=== PATIENT | female | born 1985 | race Two or more races ===

== ENCOUNTER 2016-10-11 08:06 | Emergency (ER) | payer OTHER ==
[2016-10-11 08:12] VITALS: TEMP 97.6; BMI 25.1
--- NOTE | 2016-10-11 08:20 | PDOC ---
History of Present Illness - General Chief Complaint: Vaginal Bleeding Stated Complaint: 10 WKS/BLEEDING Time Seen by Provider: 10/11/16 08:19 History Source: Patient Exam Limitations: No Limitations - History of Present Illness Initial Comments: CHIEF COMPLAINT: 31 y/o afebrile female, , approximately 10 week female with LMP "early July" c/o vaginal bleeding this morning. HISTORY OF PRESENT ILLNESS: The patient had a small amount of red blood when she wiped this morning. she states last night she had back cramping but that has resolved. She is not currently having vaginal bleeding. She denies f/c, n/ v/d, CP, SOB, abd pain, back pain, hematuria, dysuria, passage of clots. Vital signs on arrival are within normal limits. REVIEW OF SYSTEMS: GENERAL/CONSTITUTIONAL: No fever/chills. No weakness. No weight change. HEAD, EYES, EARS, NOSE AND THROAT: No change in vision. No ear pain or discharge. No sore throat. CARDIOVASCULAR: No chest pain or shortness of breath. RESPIRATORY: No cough, wheezing, or hemoptysis. GASTROINTESTINAL: No abd pain, nausea, vomiting, diarrhea. GENITOURINARY: No dysuria, frequency, or change in urination. +vaginal bleeding (resolved) MUSCULOSKELETAL: No joint or muscle swelling or pain. No neck or back pain. SKIN: No rash or easy bruising. NEUROLOGIC: No headache, vertigo, loss of consciousness, or loss of sensation. PHYSICAL EXAM: GENERAL: The patient is awake, alert, and fully oriented, in no acute distress. She is well appearing and ambulatory. HEAD: Normal with no signs of trauma. ENT: Pupils equal, round and reactive to light, extraocular movements intact, sclera anicteric, conjunctiva clear. Neck supple. LUNGS: Clear to auscultation bilaterally. Normal excursion. No respiratory distress or use of accessory muscles. CV: RRR, S1/S2, no MRG. Cap refill < 2 sec. ABDOMEN: Soft, non-distended, no hepatomegaly or splenomegaly, no masses. + left pelvic pain with palpation. VAGINAL: DEFERRED EXTREMITIES: Normal range of motion, no edema. NEUROLOGICAL: Normal speech, normal gait. CN II-XII grossly intact. PSYCH: Normal mood, normal affect. SKIN: Warm, dry, normal turgor, no rashes or lesions noted. Past History - Past Medical History Allergies/Adverse Reactions: Allergies Allergy/AdvReac Type Severity Reaction Status Date / Time No Known Allergies Allergy Verified 10/11/16 08:12 Home Medications: Ambulatory Orders NK [No Known Home Medication] 10/11/16 Thyroid Disease: Yes Other medical history: TOXIPLASMOSIS - Psycho/Social/Smoking Cessation Hx Suicidal Ideation: No Smoking History: Never smoked Hx Alcohol Use: No Drug/Substance Use Hx: No *Physical Exam - Vital Signs Last Vital Signs Temp Pulse Resp BP Pulse Ox 97.6 F 59 L 18 112/74 99 10/11/16 08:07 10/11/16 08:07 10/11/16 08:07 10/11/16 08:07 10/11/16 08:07 ED Treatment Course - LABORATORY CBC & Chemistry Diagram: 10/11/16 08:25 10/11/16 08:25 Medical Decision Making - Medical Decision Making A/P: 31 y/o , approximately 10 week female with vaginal bleeding this morning that has resolved. Plan is as follows: 1. Labs 2. UA/culture 3. Transvaginal ultrasound Labs unremarkable UA normal Ultrasound IMPRESSION: Single live intrauterine with estimated gestational age of 9 weeks 1 day. Nonvisualization of the right ovary. Hypoechoic density in the left ovary measuring 1.8cm suggestive of a hemorrhagic corpus luteum cyst. Follow up recommended. Explained all the results to the patient. She was instructed to f/u with Dr. Coon as soon as possible to f/u with ovarian cyst and return to the ER immediately with any worsening or concerning symptoms. The patient verbalizes understanding of all instructions, has no further questions and is awaiting discharge. *DC/Admit/Observation/Transfer Diagnosis at time of Disposition: Vaginal bleeding in Qualifiers: Trimester: first trimester Qualified Code(s): O46.91 - Antepartum hemorrhage, unspecified, first trimester Ovarian cyst Qualifiers: Laterality: left Qualified Code(s): N83.202 - Unspecified ovarian cyst, left side - Discharge Dispostion Disposition: HOME Condition at time of disposition: Good - Referrals Referrals: Jeison Coon MD [Staff Physician] - Call tomorrow - Patient Instructions Printed Discharge Instructions: DI for Vaginal Bleeding During , DI for Ovarian Cyst Additional Instructions: Discharge Instructions: -You have a left ovarian cyst -You can take ONLY Tylenol for pain if needed -Your ultrasound showed a fetus of 9 weeks 1 day with a heart rate of 168bpm. -Please call Dr. Coon today to schedule a follow up appointment JAIME -Return to the ER immediately with any worsening or concerning symptoms. Print Language: LITHUANIAN
[2016-10-11 08:36] LABS: BASOPHIL 1.2 % (0-2.0); EOSINOPHIL 0.8 % (0-4.5); MCH 32.2 pg (25.7-33.7); MCHC 34.3 g/dl (32.0-36.0); MEAN PLT VOLUME 8.4 fl (7.5-11.1); NEUTROPHILS 54.4 % (42.8-82.8); PLATELET COUNT 190 K/MM3 (134-434); RDW 13.2 % (11.6-15.6); WHITE BLOOD COUNT 7.8 K/mm3 (4.0-10.0)
[2016-10-11 09:01] LABS: URINE APPEARANCE CLEAR; URINE BILIRUBIN NEGATIVE (NEGATIVE); URINE BLOOD NEGATIVE (NEGATIVE); URINE COLOR LTYELLOW; URINE GLUCOSE (UA) NEGATIVE (NEGATIVE); URINE KETONE NEGATIVE (NEGATIVE); URINE LEUK ESTERASE NEGATIVE (NEGATIVE); URINE NITRITE NEGATIVE (NEGATIVE); URINE PROTEIN NEGATIVE (NEGATIVE); URINE UROBILINOGEN NEGATIVE E.U./dl (0.2-1.0)
[2016-10-11 09:06] LABS: ALBUMIN 4.2 g/dl (3.4-5.0); ANION GAP 11 (8-16); BILIRUBIN,TOTAL 0.3 mg/dL (0.2-1.0); CALCIUM 8.7 mg/dL (8.5-10.1); CO2 25 mmol/L (21-32); CREATININE 0.7 mg/dL (0.55-1.02); GLUCOSE,RANDOM 88 mg/dL (74-106); SGOT/AST 17 U/L (15-37); SGPT/ALT 21 U/L (12-78)
[2016-10-11 09:21] LABS: ALK PHOS 52 U/L (45-117); TOT PROT 7.4 g/dl (6.4-8.2)
--- NOTE | 2016-10-11 11:08 | PDOC ---
*Physical Exam - Vital Signs Last Vital Signs Temp Pulse Resp BP Pulse Ox 97.6 F 59 L 18 112/74 99 10/11/16 08:07 10/11/16 08:07 10/11/16 08:07 10/11/16 08:07 10/11/16 08:07 ED Treatment Course - LABORATORY CBC & Chemistry Diagram: 10/11/16 08:25 10/11/16 08:25 - ADDITIONAL ORDERS Additional order review: Laboratory Results 10/11/16 10/11/16 10/11/16 08:25 08:25 08:25 Sodium 137 Potassium 3.9 Chloride 101 Carbon Dioxide 25 Anion Gap 11 BUN 8 Creatinine 0.7 Creat Clearance w eGFR > 60 Random Glucose 88 Calcium 8.7 Total Bilirubin 0.3 AST 17 ALT 21 Alkaline Phosphatase 52 Total Protein 7.4 Albumin 4.2 Beta HCG, Quant 375174.4 Urine Color Ltyellow Urine Appearance Clear Urine pH 6.0 Ur Specific [place] 1.019 Urine Protein Negative Urine Glucose (UA) Negative Urine Ketones Negative Urine Blood Negative Urine Nitrite Negative Urine Bilirubin Negative Urine Urobilinogen Negative Ur Leukocyte Esterase Negative Blood Type O POSITIVE Antibody Screen Negative 10/11/16 08:25 RBC 3.99 MCV 94.0 MCHC 34.3 RDW 13.2 MPV 8.4 Neutrophils % 54.4 Lymphocytes % 37.4 Monocytes % 6.2 Eosinophils % 0.8 Basophils % 1.2 Medical Decision Making - Medical Decision Making 10/11/16 11:07 Patient seen and evaluated with the nurse practitioner. I agree with the overall evaluation, assessment, and management with the following summary of visit: 31-year-old female presents with first trimester vaginal bleeding. HCG as noted, Rh+, ultrasound shows single live intrauterine gestation with positive heart. Agree with management as outlined. *DC/Admit/Observation/Transfer Diagnosis at time of Disposition: Vaginal bleeding in Qualifiers: Trimester: first trimester Qualified Code(s): O46.91 - Antepartum hemorrhage, unspecified, first trimester Ovarian cyst Qualifiers: Laterality: left Qualified Code(s): N83.202 - Unspecified ovarian cyst, left side - Discharge Dispostion Disposition: HOME Condition at time of disposition: Good - Referrals Referrals: Jeison Coon MD [Staff Physician] - Call tomorrow - Patient Instructions Printed Discharge Instructions: DI for Ovarian Cyst, DI for Vaginal Bleeding During Additional Instructions: Discharge Instructions: -You have a left ovarian cyst -You can take ONLY Tylenol for pain if needed -Your ultrasound showed a fetus of 9 weeks 1 day with a heart rate of 168bpm. -Please call Dr. Coon today to schedule a follow up appointment JAIME -Return to the ER immediately with any worsening or concerning symptoms. Print Language: EGYPTIAN - Post Discharge Activity
[2016-10-11 11:15] VITALS: BP 100/68; PULSE 52
== END 2016-10-11 11:18 | disposition home or self-care (01) ==
LOC: JER 08:06
DX: O26.891 Other specified pregnancy related conditions, first trimester (principal); O46.91 Antepartum hemorrhage, unspecified, first trimester; N83.202 Unspecified ovarian cyst, left side; Z3A.10 10 weeks gestation of pregnancy
CPT/HCPCS: 36415; 76801-TC; 80053; 81003; 84702; 85025; 86850; 86900; 86901; 87086; 99283-25

== ENCOUNTER 2017-05-03 14:25 | Inpatient (IN) | payer OTHER ==
[2017-05-03 15:07] VITALS: BMI 30.7
[2017-05-03] MEDS ORDERED: ELECTROLYTE-148 SOLN 500 ML IV ONE ×2 (15:30)
[2017-05-03] MEDS ORDERED: CITRIC ACID/SODIUM CITRATE 30 ML UNIT-DOSE CUP PO ONE (15:30)
[2017-05-03] MEDS ORDERED: ONDANSETRON 4 MG/2 ML VIAL IVPB PRN (16:19)
[2017-05-03] MEDS ORDERED: morphine SULFATE/Preservative Free 0.5 MG/ML (1cc Syringe) EP ONE (16:19)
[2017-05-03] MEDS ORDERED: IBUPROFEN 800 MG/8 ML IJ IVPB PRN ×2 (16:20→17:57)
[2017-05-03] MEDS ORDERED: ELECTROLYTE-148 SOLN 1,000 ML IV SCH (16:45)
--- NOTE | 2017-05-03 16:46 | HP ---
Past Medical History - Primary Care Physician PCP:: Jeison Coon - Admission Chief Complaint: 39 weeks, previous c/s request of repeat c/s History of Present Illness: 32 yo f edc by sono 05/10/17 with one previous c/s request of repeat c/ s and tubal ligation risks discussed , ulternatives explained , encourged History Source: Patient Limitations to Obtaining History: Language Barrier - Past Medical History ...: 4 ...Para: 1 ...Term: 1 ...: 1 ...Spon : 1 ...Induced : 0 ...Multiple Gestation: 0 ...LMP: 08/06/16 ... Weeks Gestation by Dates: 38.4 ...EDC by Dates: 05/13/17 ...EDC by Sono: 05/10/17 Endocrine: Yes: Hypothyroidism - Past Surgical History Past Surgical History: Yes: Hx Myomectomy: No Hx Transabdominal Cerclage: No Additional Surgical History: abdominoplasty - Smoking History Smoking history: Never smoked Have you smoked in the past 12 months: No - Alcohol/Substance Use Hx Alcohol Use: No - Social History Usual Living Arrangement: Yes: With Spouse History of Recent Travel: No Home Medications - Allergies Allergies/Adverse Reactions: Allergies Allergy/AdvReac Type Severity Reaction Status Date / Time No Known Allergies Allergy Verified 05/03/17 14:43 - Home Medications Home Medications: Ambulatory Orders Ferrous Sulfate [Feosol] 325 mg PO DAILY 05/03/17 Folic Acid - 1 tab PO DAILY 05/03/17 Levothyroxine [Synthroid -] 200 mg PO DAILY 05/03/17 Vit #108/Iron/FA [ One Tablet] 1 tab PO DAILY 05/03/17 Review of Systems - Review of Systems Constitutional: reports: No Symptoms Eyes: reports: No Symptoms HENT: reports: No Symptoms Neck: reports: No Symptoms Cardiovascular: reports: No Symptoms Respiratory: reports: No Symptoms Gastrointestinal: reports: No Symptoms Genitourinary: reports: No Symptoms Breasts: reports: No Symptoms Reported Musculoskeletal: reports: No Symptoms Integumentary: reports: No Symptoms Neurological: reports: No Symptoms Endocrine: reports: No Symptoms Physical Exam - Maternity Vital Signs: Vital Signs Temperature 98.5 F 05/03/17 14:54 Pulse Rate 72 05/03/17 14:54 Respiratory Rate 20 05/03/17 14:54 Blood Pressure 115/69 05/03/17 14:54 O2 Sat by Pulse Oximetry (%) Constitutional: Yes: Well Nourished, No Distress, Calm Eyes: Yes: WNL, Conjunctiva Clear, EOM Intact HENT: Yes: WNL, Atraumatic, Normocephalic Neck: Yes: WNL, Supple, Trachea Midline Cardiovascular: Yes: WNL, Regular Rate and Rhythm Breast(s): Yes: WNL - Abdominal Exam/OB Fundal Height: 40 Number of Fetuses: Single Presentation: Vertex Contractions: No Intensity: Unaware Monitor Mode: External Heart Rate Location: [facility] Category: I Accelerations: Uniform Decelerations: None - Vaginal Exam/OB Amniotic Membrane Status: Intact Presentation: Vertex/Position Station: -3 - Physical Exam Edema: Yes Edema: LLE: Trace, RLE: Trace Deep Tendon Reflex Grade: Normal +2 ...Motor Strength: WNL Psychiatric: Yes: WNL Hemorrhage Risk Assessment - Risk Factors Medium Risk Factors: Yes: Prior , uterine surgery,or multiple laparotomies Risk Score: 1 Risk Level: Medium Risk Problem List - Problems (1) with 39 completed weeks gestation Code(s): Z3A.39 - 39 WEEKS GESTATION OF (2) Previous delivery affecting Code(s): O34.219 - MATERNAL CARE FOR UNSP TYPE SCAR FROM PREVIOUS DEL (3) Sterilization Code(s): Z30.2 - ENCOUNTER FOR STERILIZATION Assessment/Plan admit for repeat c/s and BTL. rba discussed
[2017-05-03] MEDS ORDERED: WITCH HAZEL 50% (TUCKS) 40 PAD/JAR PAD TP PRN (17:57)
[2017-05-03] MEDS ORDERED: BENZOCAINE 20% 57 GM BOTTLE TP PRN (17:57)
[2017-05-03] MEDS ORDERED: diphenhydrAMINE HCL 25 MG CAPSULE (FP) PO PRN (17:57)
[2017-05-03] MEDS ORDERED: METHYLERGONOVINE MALEATE 0.2 MG/1 ML AMP IM PRN (17:57)
[2017-05-03] MEDS ORDERED: BENZOCAINE 28 GM HEMORRHOIDAL OINTMENT PR PRN (17:57)
[2017-05-03] MEDS ORDERED: DEXTROSE 5%-LACTATED RINGERS 1,000 ML IV SCH (18:00)
[2017-05-03] MEDS ORDERED: OXYTOCIN 20 UNITS in 0.9% NS 1,000 ML IV SCH (18:00)
[2017-05-03] MEDS ORDERED: CEFAZOLIN 1 GM/D5W 50 ML IVPB SCH (18:00)
--- NOTE | 2017-05-03 19:38 | OP ---
DATE OF OPERATION: 05/03/2017 PREOPERATIVE DIAGNOSIS: , 39 weeks. Previous section. Request of repeat section and tubal ligation. POSTOPERATIVE DIAGNOSIS: , 39 weeks. Previous section. Request of repeat section and tubal ligation. PROCEDURE: Repeat low segment transverse section and bilateral tubal ligation. SURGEON: Carlos Manuel Coon M.D. SERVICE OR WORK DISPATCHER CHIEF: Marcial Turner ANESTHESIA: Spinal. ANESTHESIOLOGIST: Caleb Delvalle M.D. ESTIMATED BLOOD LOSS: 500 mL. OPERATION: Patient was taken to operating room with adequate spinal anesthesia. Abdomen and perineum were prepped and draped. Pfannenstiel abdominal skin incision was made. Abdominal wall was cut layer by layer until the peritoneum was exposed and incised. Upon entering the abdominal cavity, the lower uterine segment was identified, and uterovesical fold of the peritoneum was established. The bladder was pushed down. A low transverse incision was made. The incision extended laterally. Amniotic sac was entered. Clear fluid. Head delivered from right occipital transverse position. Cord around the foot x1. Nasopharynx was suctioned. A live baby was delivered. Placenta was delivered manually. Uterine cavity was cleared of all remaining tissue. Uterine incision was closed in 2 layers, the 1st layer with 0 Biosyn continuous suture, the 2nd layer with 0 Biosyn imbricating the 1st layer. Bladder flap was closed with 0 Biosyn continuous suture. Both tubes and ovaries were checked and were normal. No active bleeding was seen. The right tube was grasped with [place] clamp, right tube was doubly tied with 2-0 plain. Portion of tube was removed, and endosalpinx was cauterized. The same procedure repeated for opposite tube. Then peritoneum was closed with 0 Biosyn continuous suture. Muscles were brought together interrupted suture with 0 Biosyn. Fascia was closed with 0 Biosyn continuous sutures. Subcutaneous fat interrupted suture of 0 Biosyn, and the skin was closed with rios. The patient tolerated the procedure well and left the OR in good condition. CARLOS MANUEL COON M.D. [id number]
[2017-05-03] MEDS ORDERED: CEFAZOLIN 1 GM in DEXTROSE 5%-WATER - 50 ML IVPB SCH (20:45)
[2017-05-04] MEDS ORDERED: DEXTROSE 5%-WATER - 50 ML IVPB ONE (01:29)
[2017-05-04] MEDS ORDERED: ceFAZolin SODIUM 1 GM VIAL ONE (01:29)
[2017-05-04] MEDS: LEVOTHYROXINE NA 200 MCG TABLET PO SCH (06:40)
--- NOTE | 2017-05-04 08:15 | PN ---
Progress Note (short form) - Note Progress Note: pod 1 doing well, no c/o Last Vital Signs Temp Pulse Resp BP Pulse Ox 98.7 F 64 20 107/67 100 05/04/17 06:01 05/04/17 06:01 05/04/17 05:00 05/04/17 06:01 05/03/17 19:00 abdomen soft, no distension, no cva incision dry, clean no calf tenderness no excess vaginal bleeding plan ambulate cbc , advance diet, pain management Problem List - Problems (1) with 39 completed weeks gestation Code(s): Z3A.39 - 39 WEEKS GESTATION OF (2) Previous delivery affecting Code(s): O34.219 - MATERNAL CARE FOR UNSP TYPE SCAR FROM PREVIOUS DEL (3) Sterilization Code(s): Z30.2 - ENCOUNTER FOR STERILIZATION
--- NOTE | 2017-05-04 08:25 | PN ---
Progress Note (short form) - Note Progress Note: Post op day#1.S/P C section with BTL under spinal anesthesia with duramorph uneventful.Patient stable and c/o little pain for which she is on medication.No any anesthesia related problem.Patient DC from the anesthesia care.
[2017-05-04 08:32] LABS: BASOPHIL 0.7 % (0-2.0); EOSINOPHIL 0.8 % (0-4.5); MCH 32.1 pg (25.7-33.7); MCHC 33.9 g/dl (32.0-36.0); MEAN CELL VOLUME 94.6 fl (80-96); MEAN PLT VOLUME 9.1 fl (7.5-11.1); NEUTROPHILS 69.9 % (42.8-82.8); PLATELET COUNT 138 K/MM3 (134-434); RDW 13.1 % (11.6-15.6); WHITE BLOOD COUNT 7.2 K/mm3 (4.0-10.0)
[2017-05-04] MEDS: SIMETHICONE 80 MG TAB.CHEW (FP) PO PRN ×3 (09:11→20:44)
[2017-05-04] MEDS: IBUPROFEN 600 MG TABLET (FP) PO PRN ×3 (09:11→20:44)
[2017-05-04] MEDS: ENOXAPARIN NA (PORCINE) 40 MG/0.4 ML DISP.SYRIN SQ SCH (09:13)
[2017-05-04] MEDS ORDERED: DIPHTH,PERTUSS(ACELL),TET 0.5 ML DISP.SYRIN IM ONE (10:00)
[2017-05-04] MEDS ORDERED: FLU VACC QS2017-18 36MOS UP/PF 60 MCG/0.5 ML SYRINGE IM ONE (10:00)
[2017-05-04] MEDS ORDERED: ACETAMINOPHEN 325 MG TABLET (FP) ONE (12:56)
[2017-05-04] MEDS: oxyCODONE HCL 5 MG TABLET PO PRN ×2 (14:38→20:45)
[2017-05-04] MEDS ORDERED: BISACODYL 10 MG SUPP.RECT RC PRN (17:57)
[2017-05-05] MEDS: IBUPROFEN 600 MG TABLET (FP) PO PRN ×5 (02:33→20:16)
[2017-05-05] MEDS: oxyCODONE HCL 5 MG TABLET PO PRN ×6 (02:33→22:17)
[2017-05-05] MEDS: SIMETHICONE 80 MG TAB.CHEW (FP) PO PRN ×5 (02:33→20:12)
[2017-05-05] MEDS: LEVOTHYROXINE NA 200 MCG TABLET PO SCH (06:19)
--- NOTE | 2017-05-05 07:57 | PN ---
Post Progress Note - Subjective Subjective: 32 yo Para 3 status post repeat , seen and evaluated. Doing well, no complaints. Post Day: 2 Type of Delivery: Repeat C/S Vital Signs: Vital Signs Temperature 98.2 F 05/05/17 06:07 Pulse Rate 60 05/05/17 06:07 Respiratory Rate 18 05/05/17 06:07 Blood Pressure 110/67 05/05/17 06:07 O2 Sat by Pulse Oximetry (%) 100 05/03/17 19:00 Breast Exam: Yes: Soft Uterus: Yes: Fundus Firm Incision: Yes: [place] intact Abdomen/GI: Yes: Abdomen soft, Tolerating PO Lochia: Yes: Rubra Lochia, amount: Small Extremities: Yes: Calves non-tender Perineum: Yes: Intact Activity: Ambulating - Labs Labs: CBC WBC 7.2 K/mm3 (4.0-10.0) 05/04/17 08:00 RBC 3.48 M/mm3 (3.60-5.2) L 05/04/17 08:00 Hgb 11.2 GM/dL (10.7-15.3) 05/04/17 08:00 Hct 32.9 % (32.4-45.2) 05/04/17 08:00 MCV 94.6 fl (80-96) 05/04/17 08:00 MCH 32.1 pg (25.7-33.7) 05/04/17 08:00 MCHC 33.9 g/dl (32.0-36.0) 05/04/17 08:00 RDW 13.1 % (11.6-15.6) 05/04/17 08:00 Plt Count 138 K/MM3 (134-434) 05/04/17 08:00 MPV 9.1 fl (7.5-11.1) 05/04/17 08:00 Neutrophils % 69.9 % (42.8-82.8) 05/04/17 08:00 Lymphocytes % 20.6 % (8-40) D 05/04/17 08:00 Monocytes % 8.0 % (3.8-10.2) 05/04/17 08:00 Eosinophils % 0.8 % (0-4.5) 05/04/17 08:00 Basophils % 0.7 % (0-2.0) 05/04/17 08:00 Problem List - Problems (1) Status post repeat low transverse section Code(s): Z98.891 - HISTORY OF UTERINE SCAR FROM PREVIOUS SURGERY Assessment/Plan Status post repeat Stable Continue routine post op care
[2017-05-05] MEDS: ENOXAPARIN NA (PORCINE) 40 MG/0.4 ML DISP.SYRIN SQ SCH (09:06)
[2017-05-05] MEDS: SENNOSIDES/DOCUSATE COMBO (SENNA PLUS) TABLET (UD) PO PRN (20:17)
[2017-05-06] MEDS: SIMETHICONE 80 MG TAB.CHEW (FP) PO PRN ×3 (03:01→20:48)
[2017-05-06] MEDS: oxyCODONE HCL 5 MG TABLET PO PRN ×2 (03:04→06:40)
[2017-05-06] MEDS: IBUPROFEN 600 MG TABLET (FP) PO PRN ×3 (03:04→20:50)
--- NOTE | 2017-05-06 06:32 | PN ---
Post Progress Note - Subjective Subjective: 32 yo Para 3 status post repeat , seen and evaluated. Doing well. No complaints. Post Day: 3 Type of Delivery: Repeat C/S Vital Signs: Vital Signs Temperature 97.8 F 05/05/17 22:00 Pulse Rate 73 05/05/17 22:00 Respiratory Rate 18 05/05/17 22:00 Blood Pressure 114/67 05/05/17 22:00 O2 Sat by Pulse Oximetry (%) 100 05/03/17 19:00 Breast Exam: Yes: Soft Uterus: Yes: Fundus Firm Incision: Yes: [place] intact Abdomen/GI: Yes: Abdomen soft, Tolerating PO Lochia: Yes: Rubra Lochia, amount: Small Extremities: Yes: Calves non-tender Perineum: Yes: Intact Activity: Ambulating - Labs Labs: CBC WBC 7.2 K/mm3 (4.0-10.0) 05/04/17 08:00 RBC 3.48 M/mm3 (3.60-5.2) L 05/04/17 08:00 Hgb 11.2 GM/dL (10.7-15.3) 05/04/17 08:00 Hct 32.9 % (32.4-45.2) 05/04/17 08:00 MCV 94.6 fl (80-96) 05/04/17 08:00 MCH 32.1 pg (25.7-33.7) 05/04/17 08:00 MCHC 33.9 g/dl (32.0-36.0) 05/04/17 08:00 RDW 13.1 % (11.6-15.6) 05/04/17 08:00 Plt Count 138 K/MM3 (134-434) 05/04/17 08:00 MPV 9.1 fl (7.5-11.1) 05/04/17 08:00 Neutrophils % 69.9 % (42.8-82.8) 05/04/17 08:00 Lymphocytes % 20.6 % (8-40) D 05/04/17 08:00 Monocytes % 8.0 % (3.8-10.2) 05/04/17 08:00 Eosinophils % 0.8 % (0-4.5) 05/04/17 08:00 Basophils % 0.7 % (0-2.0) 05/04/17 08:00 Problem List - Problems (1) Status post repeat low transverse section Code(s): Z98.891 - HISTORY OF UTERINE SCAR FROM PREVIOUS SURGERY Assessment/Plan Status post repeat Stable Continue routine post op care
[2017-05-06] MEDS: LEVOTHYROXINE NA 200 MCG TABLET PO SCH (06:36)
[2017-05-06 08:44] LABS: BASOPHIL 0.8 % (0-2.0); EOSINOPHIL 2.5 % (0-4.5); MCH 31.6 pg (25.7-33.7); MCHC 33.3 g/dl (32.0-36.0); MEAN CELL VOLUME 94.9 fl (80-96); MEAN PLT VOLUME 8.2 fl (7.5-11.1); NEUTROPHILS 61.9 % (42.8-82.8); PLATELET COUNT 158 K/MM3 (134-434); RDW 13.1 % (11.6-15.6); WHITE BLOOD COUNT 5.9 K/mm3 (4.0-10.0)
[2017-05-06] MEDS: ENOXAPARIN NA (PORCINE) 40 MG/0.4 ML DISP.SYRIN SQ SCH (10:57)
--- NOTE | 2017-05-06 15:21 | PN ---
Progress Note (short form) - Note Progress Note: Anesthesiology note: Called by the RN Shani Toscano c/o headache. Pat s 32 y o F, S/P under spinal, with duramorph, POD#3. No complications. Pat seen and examined. glycerin supervisor over the phone used. Woke up with a headache, about 3 hrs ago. No other symptoms described. Subsided with Ibuprophen and coffee. No problem ambulating. Headache not position depended. No Nausea /vomiting. Pat c/o incisional pain. On physical exam, AAOX3. sitting at the edge of the bed. NAD, VSS. Gross neurology intact. No pain or stiffness in her neck. A/P: No sign of PDPH based on history and physical exam. Improved. Suggesting to add Tylenol for her incisional pain. Reassured. will follow up if new symptoms or any worsening.. Signed off.
--- NOTE | 2017-05-06 15:25 | PN ---
Progress Note (short form) - Note Progress Note: Anesthesia: Spinal needle insertion site clear. With no sign of inflammation or infection.
[2017-05-06] MEDS: ACETAMINOPHEN 325 MG TABLET (FP) PO PRN ×2 (16:41→20:49)
[2017-05-06] MEDS: SENNOSIDES/DOCUSATE COMBO (SENNA PLUS) TABLET (UD) PO PRN (22:37)
[2017-05-07] MEDS: ACETAMINOPHEN 325 MG TABLET (FP) PO PRN ×2 (04:40→08:26)
[2017-05-07] MEDS: IBUPROFEN 600 MG TABLET (FP) PO PRN ×2 (04:42→08:27)
[2017-05-07] MEDS: LEVOTHYROXINE NA 200 MCG TABLET PO SCH (06:55)
[2017-05-07] MEDS: SIMETHICONE 80 MG TAB.CHEW (FP) PO PRN (08:27)
[2017-05-07 09:25] VITALS: BP 112/72; PULSE 66; TEMP 98
[2017-05-07] MEDS: ENOXAPARIN NA (PORCINE) 40 MG/0.4 ML DISP.SYRIN SQ SCH (09:35)
--- NOTE | 2017-05-07 09:39 | DS ---
Physical Exam-RESIDENTIAL ROOFER Vital Signs: Vital Signs Temperature 98 F 05/07/17 09:24 Pulse Rate 66 05/07/17 09:24 Respiratory Rate 20 05/07/17 09:24 Blood Pressure 112/72 05/07/17 09:24 O2 Sat by Pulse Oximetry (%) 100 05/03/17 19:00 Constitutional: Yes: Well Nourished Eyes: Yes: Conjunctiva Clear HENT: Yes: Atraumatic Neck: Yes: Supple Cardiovascular: Yes: Regular Rate and Rhythm Respiratory: Yes: Regular Gastrointestinal: Yes: Normal Bowel Sounds External Genitalia: Yes: Normal Vaginal Exam: Yes: Normal Uterus: Yes: Normal Breast(s): Yes: WNL Wound/Incision: Yes: Clean/Dry, [place] Intact Neurological: Yes: Alert, Oriented ...Motor Strength: WNL Psychiatric: Yes: Alert, Oriented Labs: CBC, BMP 05/06/17 07:35 Delivery - Delivery Type of Anesthesia: Spinal Episiotomy/Laceration: None EBL (cc): 500 Delivery, Single - Stages of Labor Date of Delivery: 05/03/17 Time of Delivery: 17:18 Time Placenta Delivered: 17:19 - Condition of Infant Transmission Engineer/Envelope Cutter Present: Yes Name: Martha Steen Infant Gender: Male Weight: 7 lb 3 oz Position: Right, OT Total Hours ROM (Hrs/Mins): 0hrs 2min - 1 Minute Total Score: 9 5 Minutes Total Score: 9 - [place] Feeding Plan Initial Plan: Exclusive throughout hospitalization Discharge Summary Reason For Visit: CSECTION Current Active Problems with 39 completed weeks gestation (Acute) Previous delivery affecting (Acute) Status post repeat low transverse section (Acute) Sterilization (Acute) Procedures: Principal: Repeat Low Transverse Hospital Course: Routine Post op care Condition: Good - Instructions Diet, Activity, Other Instructions: Regular diet No driving, no lifting x 4 weeks F/U in clinic for rios removal in 1 week Disposition: HOME - Home Medications Comprehensive Discharge Medication List: Ambulatory Orders Ferrous Sulfate [Feosol] 325 mg PO DAILY 05/03/17 Folic Acid - 1 tab PO DAILY 05/03/17 Levothyroxine [Synthroid -] 200 mg PO DAILY 05/03/17 Vit #108/Iron/FA [ One Tablet] 1 tab PO DAILY 05/03/17
--- NOTE | 2017-05-09 13:25 | PATH ---
Surgical Pathology Report Patient Name: [facility]. Rec. #: [id number] /Age/Gender: 1985 (Age: 32) / F Account: [id number] Location: [facility] OBS/CHICKEN HATCHERY HELPER Taken: 05/03/2017 Received: 05/04/2017 Reported: 05/09/2017 Physicians: Jeison Coon M.D. Specimen(s) Received A: PLACENTA B: LEFT FALLOPIAN TUBE C: RIGHT FALLOPIAN TUBE Clinical History Final Diagnosis A. PLACENTA, DELIVERY: FOCALLY DISRUPTED THIRD TRIMESTER PLACENTA WITH 3 VESSEL UMBILICAL CORD AND UNREMARKABLE PLACENTAL MEMBRANES. B. LEFT FALLOPIAN TUBE, SALPINGECTOMY: FULL LUMINAL PORTION OF UNREMARKABLE FALLOPIAN TUBE, INCLUDING FIMBRIATED END. C. RIGHT FALLOPIAN TUBE, SALPINGECTOMY: FULL LUMINAL PORTION OF UNREMARKABLE FALLOPIAN TUBE, INCLUDING FIMBRIATED END. Electronically Signed Kelby Kimball M.D. Gross Description A. The specimen is received fresh labeled placenta and is a 553 gram, 18.0 x 17.5 x 3.0 cm. placenta with attached membranes and umbilical cord. The attached membranes are johnson, translucent with focal opacities and insert marginally. The umbilical cord measures 43 cm. in length and averages 1.2 cm. in diameter. The cord inserts eccentrically, 4 cm. to the nearest margin. No true knots or strictures are identified. Cut surface of the umbilical cord reveals 3 vessels. The surface is de la torre-blue with minimal fibrin deposition and appropriate caliber vessels. The maternal surface is red-brown with focal defects. Sectioning reveals red-brown, spongy parenchyma. No lesions are identified. Eye Dropper Assembler sections are submitted in three cassettes as follows: 1- membrane rolls and umbilical cord; 2-3- full thickness sections of placenta. B. Received in formalin labeled "portion of left fallopian tube," is a 1.7 cm in length fimbriated fallopian tube. The outer surface is johnson-frederick and smooth. Sectioning reveals an unremarkable lumen. Eye Dropper Assembler sections are submitted in 2 cassettes as follows: 1-fimbria; 2-cross sections of fallopian tube. C. Received in formalin labeled "portion of right fallopian tube," is a 1.8 cm in length fimbriated fallopian tube. The outer surface is johnson-de la torre with fibrous adhesions. Sectioning reveals an unremarkable lumen. Eye Dropper Assembler sections are submitted in 2 cassettes as follows: 1-fimbria; 2-cross sections of fallopian tube. 05/08/201705/08/2017
== END 2017-05-07 17:30 | disposition home or self-care (01) | DRG 540 ==
LOC: JLDR 14:25 → J3W 20:06
PROVIDERS: ADMIT Obstetrics & Gynecology; ATTEND Obstetrics & Gynecology
PROC: 10D00Z1 Extraction of Products of Conception, Low, Open Approach (ICD-10-PCS; principal; 2017-05-03)
PROC: 0UB70ZZ Excision of Bilateral Fallopian Tubes, Open Approach (ICD-10-PCS; 2017-05-03)
DX: O34.211 Maternal care for low transverse scar from previous cesarean delivery (principal); N85.8 Other specified noninflammatory disorders of uterus; Z3A.39 39 weeks gestation of pregnancy; Z37.0 Single live birth; Z30.2 Encounter for sterilization
CPT/HCPCS: 36415; 85025; 88302-TC; 88307-TC; 90686; 90715; G0008

== ENCOUNTER 2017-08-24 19:26 | Emergency (ER) | payer OTHER ==
--- NOTE | 2017-08-24 19:46 | PDOC ---
Rapid Medical Evaluation Chief Complaint: Cold Symptoms Time Seen by Provider: 08/24/17 19:43 Medical Evaluation: Allergies Allergy/AdvReac Type Severity Reaction Status Date / Time No Known Allergies Allergy Verified 05/03/17 14:43 08/24/17 19:43 I have performed a brief in-person evaluation of this patient. The patient presents with a chief complaint of: cold symptoms , fevers, chills , 2 kids ill with Influenza 4 days ago. Pertinent physical exam findings: ill, congested, body aches. I have ordered the following: nothing - clinically susp. of Influenza, , + TubAL ligation . The patient will proceed to the ED for further evaluation. 08/24/17 19:46
[2017-08-24 19:48] VITALS: BP 128/66; PULSE 105; TEMP 98.8; BMI 28.1
--- NOTE | 2017-08-24 20:36 | PDOC ---
History of Present Illness - General Chief Complaint: Cold Symptoms Stated Complaint: FEVER Time Seen by Provider: 08/24/17 19:43 History Source: Patient Exam Limitations: No Limitations - History of Present Illness Initial Comments: CHIEF COMPLAINT: 32 y/o afebrile female c/o body aches, fever, chills, cough and runny nose since yesterday. HISTORY OF PRESENT ILLNESS: The patient has been taking motrin for her symptoms. Vital signs on arrival are notable for pulse of 105. REVIEW OF SYSTEMS: GENERAL/CONSTITUTIONAL: + fever/chills. +body aches No weakness. No weight change. HEAD, EYES, EARS, NOSE AND THROAT: +runny nose. No change in vision. No ear pain or discharge. No sore throat. CARDIOVASCULAR: No chest pain or shortness of breath. RESPIRATORY: +cough. No wheezing or hemoptysis. GASTROINTESTINAL: No abd pain, nausea, vomiting, diarrhea. GENITOURINARY: No dysuria, frequency, or change in urination. MUSCULOSKELETAL: No joint or muscle swelling or pain. No neck or back pain. SKIN: No rash or easy bruising. NEUROLOGIC: No headache, vertigo, loss of consciousness, or loss of sensation. PHYSICAL EXAM: GENERAL: The patient is awake, alert, and fully oriented, in no acute distress. She is non toxic but ill appearing. HEAD: Normal with no signs of trauma. ENT: Pupils equal, round and reactive to light, extraocular movements intact, sclera anicteric, conjunctiva clear. Neck supple. LUNGS: Clear to auscultation bilaterally. Normal excursion. No respiratory distress or use of accessory muscles. CV: RRR, S1/S2, no MRG. Cap refill < 2 sec. ABDOMEN: Soft, non-distended, non-tender even to deep palpation, no hepatomegaly or splenomegaly, no masses. EXTREMITIES: Normal range of motion, no edema. NEUROLOGICAL: Normal speech, normal gait. CN II-XII grossly intact. PSYCH: Normal mood, normal affect. SKIN: Warm, dry, normal turgor, no rashes or lesions noted. Past History - Past Medical History Allergies/Adverse Reactions: Allergies Allergy/AdvReac Type Severity Reaction Status Date / Time No Known Allergies Allergy Verified 08/24/17 19:46 Home Medications: Ambulatory Orders Ferrous Sulfate [Feosol] 325 mg PO DAILY 05/03/17 Levothyroxine [Synthroid -] 200 mg PO DAILY 05/03/17 Oseltamivir Phosphate [Tamiflu -] 75 mg PO BID #10 capsule 08/24/17 Asthma: No Cancer: No Cardiac Disorders: No Diabetes: No HTN: No Seizures: No Thyroid Disease: No - Suicide/Smoking/Psychosocial Hx Smoking History: Never smoked Have you smoked in the past 12 months: No Hx Alcohol Use: No Drug/Substance Use Hx: No Hx Substance Use Treatment: No *Physical Exam - Vital Signs Last Vital Signs Temp Pulse Resp BP Pulse Ox 98.8 F 105 H 16 128/66 98 08/24/17 19:46 08/24/17 19:46 08/24/17 19:46 08/24/17 19:46 08/24/17 19:46 Medical Decision Making - Medical Decision Making A/P: 32 y/o female with signs and symptoms of the flu. Will send home with dx of flu and rx for tamiflu. Instructed her to continue taking motrin every 6 hours for fever, drink plenty of fluids, get lots of rest and return to the ER with any worsening or concerning symptoms. The patient verbalizes understanding of all instructions, has no further questions and is awaiting discharge. *DC/Admit/Observation/Transfer Diagnosis at time of Disposition: Influenza - Discharge Dispostion Disposition: HOME Condition at time of disposition: Stable - Referrals Referrals: Tona Cardona MD [Primary Care Provider] - - Patient Instructions Printed Discharge Instructions: DI for Influenza -- Adult Additional Instructions: Discharge Instructions: -You have the flu -A prescription was sent to your pharmacy for tamiflu -Please continue taking motrin every 6 hours for fever -Drink plenty of fluids and get lots of rest -Return to the ER with any worsening or concerning symptoms. Instrucciones de descarga: -Usted tiene la gripe -[place] receta fue enviada a [place] [facility] para tamiflu -Por favor, contine tomando motrin cada 6 horas para la fiebre - Elin muchos lquidos y descanse mucho -Volver a la mo de emergencias con cualquier empeoramiento o sntomas. Print Language: [place] - Post Discharge Activity
== END 2017-08-24 20:46 | disposition home or self-care (01) ==
LOC: JERFT 19:26
DX: J11.1 Influenza due to unidentified influenza virus with other respiratory manifestations (principal)
CPT/HCPCS: 99281-25